=== PATIENT | male | born 1995 | race African-American/Black ===

== ENCOUNTER 2017-07-26 20:37 | Emergency (ER) | payer SELFPAY ==
[~2017-07-26] VITALS: Ht 167.6 cm; Wt 77.1 kg
[~2017-07-26 20:37] MED LIST: ALBUTEROL SULF8.5 GM INH; ALBUTEROL2.5 MG/3 M INH; PROMETHAZINE-C118 M1 ORAL
[2017-07-26 20:52] VITALS: BP 143/82
[2017-07-26] MEDS ORDERED: Norco 5mg/325mg tab ORAL ONE (21:15)
--- NOTE | 2017-07-26 21:42 | Emergency Room Report ---
History of Present Illness General Chief Complaint: General Complaint Source: Patient Present Illness HPI Is a 22-year-old male with no past medical history. He presents with ingrown toenail to the left great toe. Onset about week and a half. Start swelling and draining the last few days. Pain is 8/10. Worse with walking. No trauma. No fever or chills. Allergies: Coded Allergies: Dust (Unverified Allergy, Unknown, 07/26/17) Patient History Past Medical History: none, see triage record, old chart reviewed Past Surgical History: none Pertinent Family History: none Social History: Denies: smoking Immunizations: other Reviewed Nursing Documentation: PMH: Agreed, PSxH: Agreed Nursing Documentation-PMH Past Medical History: No History, Except For Hx Cardiac Problems: No Hx Hypertension: No Hx Pacemaker: No Hx Asthma: Yes Hx COPD: No Hx Diabetes: No Hx Cancer: No Hx Gastrointestinal Problems: No Hx Dialysis: No Hx Neurological Problems: No Hx Cerebrovascular Accident: No Hx Seizures: No Review of Systems Eye: Denies: eye pain, blurred vision ENT: Denies: ear pain, nose congestion, throat swelling Respiratory: Denies: cough, shortness of breath Cardiovascular: Denies: chest pain, palpitations Gastrointestinal: Denies: abdominal pain, diarrhea, nausea, vomiting Musculoskeletal: Denies: back pain, joint pain Skin: Denies: rash Neurological: Denies: headache, numbness Endocrine: Denies: increased thirst, increased urine Hematologic/Lymphatic: Denies: easy bruising All Other Systems: negative except mentioned in HPI Physical Exam Vital Signs Date Time Temp Pulse Resp B/P (MAP) Pulse Ox O2 Delivery O2 Flow Rate FiO2 07/26/17 20:41 98.1 82 16 143/82 99 Room Air vitals normal Sp02 EP Interpretation: reviewed, normal General Appearance: well appearing, no apparent distress, alert Head: normocephalic, atraumatic Eyes: bilateral eye PERRL, bilateral eye EOMI ENT: hearing grossly normal, normal pharynx Neck: full range of motion, supple, no meningismus Respiratory: chest non-tender, lungs clear, normal breath sounds Cardiovascular #1: regular rate, rhythm, no murmur Gastrointestinal: normal bowel sounds, non tender, no mass, no organomegaly, no bruit, non-distended Musculoskeletal: back normal, gait/station normal, normal range of motion, other - Left great toe: There is swelling and erythematous tissue to the medial aspect of the nail. Both feet have fungal infection to the nail. No crepitance. Neurologic: alert, oriented x3 Psychiatric: mood/affect normal Skin: warm/dry Procedures Additional Procedure Procedure Narrative Procedure: Partial maitrextomy Indication: Infected ingrown toenail Description: The foot was soaked in a Betadine solution. Afterward digital block with 1% lidocaine without epinephrine. I injected about 5 mL. After good anesthesia, I excised the inflamed erythematous tissue next to the nail. I place a small tourniquet to the toe to prevent further bleeding. I did remove part of the nail medially. Is a remove the ingrown nail. Afterward, tourniquet released in pressure dressing done. Patient tolerated procedure without a problem. Medical Decision Making Diagnostic Impression: Primary Impression: Ingrowing toenail with infection Additional Impression: Onychomycosis ER Course Patient presents with the ingrown toenail is infected. No evidence of deep infection. We'll discharge home. Last Vital Signs Date Time Temp Pulse Resp B/P (MAP) Pulse Ox O2 Delivery O2 Flow Rate FiO2 07/26/17 20:41 98.1 82 16 143/82 99 Room Air Status: improved Disposition: HOME, SELF-CARE Condition: Stable Scripts Hydrocodone/Acetaminophen 5-325* (HYDROCODONE/ACETAMINOPHEN 5-325*) 1 Each Tablet 1 TAB ORAL Q6H Y for For Pain, #15 TAB 0 Refills Prov: ODESSA SIU M.D. 07/26/17 Doxycycline Monohydrate* (DOXYCYCLINE MONOHYDRATE*) 100 Mg Capsule 100 MG ORAL Q12H, #14 CAP 0 Refills Prov: ODESSA SIU M.D. 07/26/17 Referrals: NOT CHOSEN [facility]/,REFERRING (PCP) Additional Instructions: Followup with your Dr. in 7 days for recheck. Return if symptom worsen. Have your doctor treat your fungal infection also. ODESSA SIU M.D. Jul 26, 2017 21:42
[2017-07-26] MEDS ORDERED: DOXYCYCLINE MO100 MG ORAL (22:24)
[2017-07-26] MEDS ORDERED: HYDROCODON-ACE1 EA15 ORAL (22:24)
[2017-07-26 22:25] VITALS: BP 137/83
[2017-07-26 22:30] VITALS: BP 137/83
== END 2017-07-26 22:30 | disposition home or self-care (01) ==
LOC: EMR 21:25
DX: L60.0 Ingrowing nail (principal); B35.1 Tinea unguium; J45.909 Unspecified asthma, uncomplicated
CPT/HCPCS: 99284

== ENCOUNTER 2020-09-21 03:37 | Emergency (ER) | payer SELFPAY ==
[~2020-09-21] VITALS: Ht 170.2 cm; Wt 86.2 kg
[~2020-09-21 03:37] MED LIST changes: +DOXYCYCLINE MO100 MG ORAL; +HYDROCODON-ACE1 EA15 ORAL
[2020-09-21 03:50] VITALS: BP 134/77
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
--- NOTE | 2020-09-21 04:10 | NUR ---
Nurse Note: I&D performed by . Site dressed.
[2020-09-21] MEDS ORDERED: Lidocaine 1% Plain 30 ml INJ ONE (04:15)
[2020-09-21] MEDS ORDERED: Bactrim-DS 1 tab ORAL ONE (04:15)
[2020-09-21] MEDS ORDERED: HYDROcodone/Acetamin 5/325 tab ORAL ONE (04:15)
[2020-09-21] MEDS ORDERED: BACTRIM DS TAB1 EAC1 ORAL (04:27)
[2020-09-21] MEDS ORDERED: HYDROCODON-ACE1 EA15 ORAL (04:27)
[2020-09-21 04:35] VITALS: BP 128/80
--- NOTE | 2020-09-21 04:35 | NUR ---
ED Nurse Note: Pt cleared by health care Provider for discharge. DC instructions/prescription was given and explained to pt and verbalized understanding of teachings. Instructed pt to follow up with PCP within one week; provided referals as well. All medical deviecs such as ID band removed. Pt is AAO x4, ambulatory and left with all personal belongings.
== END 2020-09-21 04:35 | disposition home or self-care (01) ==
LOC: EMR 03:59
DX: L02.214 Cutaneous abscess of groin (principal); S39.012A Strain of muscle, fascia and tendon of lower back, initial encounter; V43.62XA Car passenger injured in collision with other type car in traffic accident, initial encounter; Y92.410 Unspecified street and highway as the place of occurrence of the external cause; J45.909 Unspecified asthma, uncomplicated
CPT/HCPCS: 10060; 99282